=== PATIENT | male | born 1965 | race African-American/Black ===

== ENCOUNTER 2024-09-13 13:21 | Emergency (ER) | payer OTHER ==
[~2024-09-13] VITALS: Ht 177.8 cm; Wt 72.6 kg
[2024-09-13 14:30] VITALS: BP 128/81; O2SAT 100
== END 2024-09-13 14:31 | disposition home or self-care (01) ==
LOC: ER 13:21
DX: S56.511A Strain of other extensor muscle, fascia and tendon at forearm level, right arm, initial encounter (principal); X58.XXXA Exposure to other specified factors, initial encounter; Y93.89 Activity, other specified; Y92.89 Other specified places as the place of occurrence of the external cause; Y99.8 Other external cause status
CPT/HCPCS: A4606; A4663